=== PATIENT | male | born 1955 | race Caucasian/White ===

== ENCOUNTER 2023-01-16 14:41 | Emergency (ER) | payer MEDICARE, MEDICAID | END 2023-01-16 16:56 | disposition home or self-care (01) | LOC: JP.ED 14:41 | DX: L25.9 Unspecified contact dermatitis, unspecified cause (principal) | CPT/HCPCS: 99282 ==

== ENCOUNTER 2023-02-14 13:02 | Emergency (ER) | payer MEDICARE, MEDICAID ==
[2023-02-14] MEDS ORDERED: Triamcinolone Acetonide 0.1% Oint 15 GM Tube TOP ONE ×2 (13:47→14:00)
[2023-02-14] MEDS ORDERED: Triamcinolone Acetonide 40 MG/ML 1 ML SDV IM ONE (13:47)
[2023-02-14] MEDS ORDERED: Famotidine 20 MG Tab PO ONE (13:48)
[2023-02-14] MEDS ORDERED: diphenhydrAMINE 25 MG Cap PO ONE (13:48)
[2023-02-14] MEDS ORDERED: Cetirizine 10 MG Tab PO ONE (13:48)
== END 2023-02-14 14:22 | disposition home or self-care (01) ==
LOC: JP.ED 13:02
DX: L20.9 Atopic dermatitis, unspecified (principal)
CPT/HCPCS: 96372; 99282; A9270; J3301

== ENCOUNTER 2023-11-06 15:41 | Emergency (ER) | payer MEDICAID, MEDICARE ==
[2023-11-06 16:51] LABS: BASOPHILS ABSOLUTE AUTO 0.03 K/uL (0.00-0.10); BASOPHILS PERCENT AUTO 0.3 % (0.1-1.3); HEMATOCRIT 42.9 % (38.4-49.7); HEMOGLOBIN 15.4 g/dL (12.9-16.9); IMMATURE GRAN ABSOLUTE AUTO 0.05 K/uL (0.00-0.23); IMMATURE GRAN PERCENT AUTO 0.4 % (0.0-0.7); LYMPHOCYTES ABSOLUTE AUTO 0.63 K/uL (0.8-3.3); LYMPHOCYTES PERCENT AUTO 5.4 % (11.4-47.7); MEAN CORPUSCULAR HEMOGLOBIN 32.6 pg (31.6-35.5); MEAN CORPUSCULAR HGB CONC 35.9 g/dL (31.6-35.5); MEAN CORPUSCULAR VOLUME 90.9 fL (81.4-99.0); MONOCYTES ABSOLUTE AUTO 1.49 K/uL (0.20-0.90); MONOCYTES PERCENT AUTO 12.8 % (3.3-12.6); NEUTROPHILS ABSOLUTE AUTO 9.46 K/uL (1.0-7.6); NEUTROPHILS PERCENT AUTO 81.1 % (40.0-78.1); PLATELET COUNT,PLT 214 K/uL (130-375); RED BLOOD CELL COUNT 4.72 M/uL (4.14-5.76); WHITE BLOOD CELL COUNT,WBC 11.7 K/uL (3.2-11.0)
[2023-11-06 17:06] LABS: A/G RATIO 0.9 (1.2-2.2); ALANINE AMINOTRANSFERASE,ALT 16 U/L (12-78); ALBUMIN 3.8 g/dL (3.4-5.0); ALKALINE PHOSPHATASE 93 U/L (46-116); ASPARTATE AMNIOTRANSFERASE,AST 21 U/L (15-37); BILIRUBIN TOTAL 0.7 mg/dL (0.2-1.0); BLOOD UREA NITROGEN,BUN 8 mg/dL (7-18); CALCIUM 9.3 mg/dL (8.5-10.1); CARBON DIOXIDE,CO2 26 mmol/L (21-32); CHLORIDE,CL 96 mmol/L (100-108); CREATININE 1.2 mg/dL (0.8-1.3); EST CRCL DRUG DOSING (CG) 67.51 mL/min; ESTIMATED GFR 66 mL/min (>60); GLUCOSE RANDOM 99 mg/dL (74-106); POTASSIUM,K 3.6 mmol/L (3.6-5.2); PROTEIN TOTAL,TP 7.9 g/dL (6.4-8.2); SODIUM,NA 132 mmol/L (140-148)
[2023-11-06 17:09] LABS: ANION GAP 13.6 mmol/L (5.0-14.0)
[2023-11-06 17:12] LABS: LACTIC ACID 1.4 mmol/L (0.4-2.0)
[2023-11-06] MEDS ORDERED: Sodium Chloride 0.9% 100 ML IV SCH (17:30)
[2023-11-06] MEDS ORDERED: Iopamidol 612 MG/ML 100 ML Bottle IV SCH (17:30)
[2023-11-06] MEDS: Sodium Chloride 0.9% 10 ML Syringe FLUSH ONE (18:52)
[2023-11-06] MEDS: Sodium Chloride 0.9% 1,000 ML IV SCH (19:29)
[2023-11-06 19:48] LABS: APPEARANCE,URINE CLEAR (CLEAR); BILIRUBIN,URINE NEGATIVE (NEGATIVE); COLOR,URINE YELLOW (YELLOW); GLUCOSE,URINE NEGATIVE (NEGATIVE); KETONES,URINE TRACE mg/dL (NEGATIVE); LEUKOCYTE ESTERASE,URINE NEGATIVE (NEGATIVE); NITRITE,URINE NEGATIVE (NEGATIVE); OCCULT BLOOD,URINE NEGATIVE (NEGATIVE); PROTEIN,URINE NEGATIVE (NEGATIVE)
[2023-11-06] MEDS: Ondansetron 4 MG/2 ML SDV IVPUSH ONE (19:50)
[2023-11-06 19:54] LABS: AMORPHOUS SEDIMENT,URINE NOT SEEN; BACTERIA,URINE RARE; EPITHELIAL CELLS,URINE NOT SEEN; MUCUS,URINE NOT SEEN; RBC,URINE 0-5 (0-5); WBC,URINE 0-5 (0-5)
== END 2023-11-06 22:05 | disposition home or self-care (01) ==
LOC: JP.ED 15:41
DX: U07.1 COVID-19 (principal); Z91.011 Allergy to milk products
CPT/HCPCS: 36415; 71260; 74177; 80053; 81001; 82150; 83605; 83690; 84145; 84484; 85025; 86140; 87040; 96361; 96374; 99284; J2405; J3490; J7030; U0002; 93010